=== PATIENT | male | born 1975 | race Caucasian/White ===

== ENCOUNTER 2016-07-05 15:19 | Emergency (ER) | payer BC, OTHER ==
[2016-07-05 15:35] VITALS: BP 147/95
--- NOTE | 2016-07-05 15:44 | UC ---
Hand/Wrist HPI - HPI Summary HPI Summary: The patient comes in today for: 1. Right thumb injury: Onset: 30 minutes ago. Palliative/provocative: Movement makes it worse. Rest makes it better. Quality: Ache Region: Right thumb, 4th and 5th finger and base of the thumb. Severity: 5/10 Time: Constant. Associated symptoms: Event: He was moving his tool box in the back of his truck and suffered a hyperextension injury. Previous treatment: None. Previous injury: None. * - History Of Current Complaint Chief Complaint: UCUpperExtremity Stated Complaint: RT HAND INJURY Time Seen by Provider: 07/05/16 15:37 Hx Obtained From: Patient - Allergies/Home Medications Allergies/Adverse Reactions: Allergies Allergy/AdvReac Type Severity Reaction Status Date / Time No Known Allergies Allergy Verified 07/05/16 15:35 PMH/Surg Hx/FS Hx/Imm Hx Previously Healthy: No - acute epididymitis Endocrine History Of: Denies: Diabetes, Thyroid Disease, Hyperthyroidism, Hypothyroidism, Dyslipidemia Cardiovascular History Of: Denies: Cardiac Disorders, Hypertension - He states that his blood pressure is usually lower., Pacemaker/ICD, Myocardial Infarction, Congestive Heart Failure, Atrial Fibrillation, Deep Vein Thrombosis, Bleeding Disorders Respiratory History Of: Denies: COPD, Asthma, Bronchitis, Pneumonia, Pulmonary Embolism GI/ History Of: Denies: Gastroesophageal Reflux, Ulcer, Gastrointestinal Bleed, Gall Bladder Disease, Kidney Stones, Diverticulitis, Renal Disease, Urosepsis Neurological History Of: Denies: TIA, CVA, Dementia, Seizures, Migraine Psychological History Of: Denies: Anxiety, Depression, Bipolar Disorder, Schizophrenia, Post Traumatic Stress Disorder Cancer History Of: Denies: Lung Cancer, Colorectal Cancer, Breast Cancer, Prostate Cancer, Cervical Cancer Other History Of: Negative For: HIV, Hepatitis B, Hepatitis C, Anticoagulant Therapy - Surgical History Surgical History: None - Family History Known Family History: Positive: Hypertension, Diabetes Negative: Cardiac Disease - Social History Occupation: Employed Full-time Alcohol Use: Occasionally Substance Use Type: None Smoking Status (MU): Light Every Day Tobacco Smoker Review of Systems Constitutional: Negative Skin: Negative Eyes: Negative ENT: Negative Respiratory: Negative Cardiovascular: Negative Gastrointestinal: Negative Genitourinary: Negative Musculoskeletal: Arthralgia, Myalgia All Other Systems Reviewed And Are Negative: Yes Physical Exam Triage Information Reviewed: Yes Appearance: Well-Appearing, No Pain Distress, Well-Nourished Vital Signs: Initial Vital Signs Temp 98.3 F 07/05/16 15:31 Pulse 79 07/05/16 15:31 Resp 12 07/05/16 15:31 BP 147/95 07/05/16 15:31 Pulse Ox 100 07/05/16 15:31 Vital Signs Reviewed: Yes Eyes: Positive: Conjunctiva Clear. Negative: Discharge ENT: Positive: Hearing grossly normal. Negative: Pharyngeal erythema, Nasal congestion, Nasal drainage, TM bulging, TM dull, TM red, Tonsillar swelling, Tonsillar exudate Dental: Negative: Gross Decay/Caries @, Dental Fracture @ Neck: Positive: Supple, Nontender, No Lymphadenopathy. Negative: Nuchal Rigidity Respiratory: Positive: Lungs clear, No respiratory distress, No accessory muscle use. Negative: Crackles, Wheezing Cardiovascular: Positive: RRR, No Murmur Abdomen Description: Positive: Nontender, No Organomegaly, Soft. Negative: Distended, Peritoneal Signs Musculoskeletal: Positive: Edema @, Other: - Right hand/thumb: No obvious misalignment. No ecchymosis. Mild edema. He is able to move the middle and distal phalanx. Neurological: Positive: Alert. Negative: Lethargic Psychological: Positive: Age Appropriate Behavior, Consolable Skin: Negative: rashes, breakdown Diagnostics - Radiology No standard instances Xray Interpretation: No Acute Changes Radiology Interpretation Completed By: Radiologist Hand/Wrist Course/Dx - Differential Dx/Diagnosis Differential Diagnosis/HQI/PQRI: Contusion, Sprain, Strain Provider Diagnoses: high blood pressure. Right thumb sprain. Discharge - Discharge Plan Condition: Stable Disposition: HOME Patient Education Materials: Finger Sprain (ED) Referrals: No Primary Care Phys,NOPCP [Primary Care Provider] - 1 Week (Please see your primary care provider in about three days to see how well you are doing. If you don't have a primary care provider, please contact the physician referral service. If you can't get in timely, please you may come back to see us until you can. If you get worse, please be seen sooner by us or the ER.) [facility] REFERRAL [Outside]
--- NOTE | 2016-07-05 16:14 | RAD ---
HISTORY: Pain after axial pressure injury, right hand and wrist pain COMPARISONS: None VIEWS: 8, Frontal, lateral, oblique, and scaphoid deviation views of the right hand and right wrist FINDINGS: BONE DENSITY: Normal. BONES: There is no displaced fracture. JOINTS: There is no arthropathy. ALIGNMENT: There is no dislocation. SOFT TISSUES: Unremarkable. OTHER FINDINGS: None. IMPRESSION: NO ACUTE OSSEOUS INJURY TO THE RIGHT HAND OR RIGHT WRIST. IF SYMPTOMS PERSIST, RECOMMEND REPEAT IMAGING.
== END 2016-07-05 16:35 | disposition home or self-care (01) ==
LOC: UCEAST 15:19
DX: S63.601A Unspecified sprain of right thumb, initial encounter (principal); X58.XXXA Exposure to other specified factors, initial encounter; Y93.89 Activity, other specified; Y92.812 Truck as the place of occurrence of the external cause; R03.0 Elevated blood-pressure reading, without diagnosis of hypertension; F17.210 Nicotine dependence, cigarettes, uncomplicated
CPT/HCPCS: 99213; G0463

== ENCOUNTER 2017-04-14 12:32 | Emergency (ER) | payer OTHER ==
[2017-04-14 13:19] VITALS: BP 138/92
--- NOTE | 2017-04-14 13:34 | UC ---
Eye Complaint HPI - HPI Summary HPI Summary: Right upper eye lid swelling and tenderness for about a day. No significant drainage. He denies eye trauma and photophobia. He uses contacts but will not be using them until this clears up. - History of Current Complaint Chief Complaint: KARINAEye Stated Complaint: EYE IRRITATION Time Seen by Provider: 04/14/17 13:20 Hx Obtained From: Patient Onset/Duration: Lasting Hours, Still Present Timing: Constant Severity Initially: Moderate Severity Currently: Moderate Character: Dull Aggravating Factor(s): Other - touch. Alleviating Factor(s): Nothing Associated Signs And Symptoms: Positive: Swelling. Negative: Photophobia, Vision Impairment Bilateral, Vision Impairment Right, Vision Impairment Left, Fever - Allergies/Home Medications Allergies/Adverse Reactions: Allergies Allergy/AdvReac Type Severity Reaction Status Date / Time No Known Allergies Allergy Verified 04/14/17 13:14 PMH/Surg Hx/FS Hx/Imm Hx Previously Healthy: Yes Other History Of: Negative For: HIV, Hepatitis B, Hepatitis C, Anticoagulant Therapy - Surgical History Surgical History: None - Family History Known Family History: Positive: Hypertension, Diabetes Negative: Cardiac Disease - Social History Occupation: Employed Full-time Lives: With Family Alcohol Use: 4-6 drinks daily Substance Use Type: None Smoking Status (MU): Light Every Day Tobacco Smoker Amount Used/How Often: 1 cigarette daily Length of Time of Smoking/Using Tobacco: ~1 PPD Since Age 17 - Immunization History Most Recent Influenza Vaccination: Not the 2016/2017 Season Review of Systems Eyes: Other - eye lid redness. All Other Systems Reviewed And Are Negative: Yes Physical Exam Triage Information Reviewed: Yes Appearance: Well-Appearing, No Pain Distress, Well-Nourished Vital Signs: Initial Vital Signs Temp 98.1 F 04/14/17 13:12 Pulse 76 04/14/17 13:12 Resp 16 04/14/17 13:12 BP 138/92 04/14/17 13:12 Pulse Ox 100 04/14/17 13:12 Vital Signs Reviewed: Yes Eye Exam: Other - right upper eye lid moderate swelling without fluctuance or pointing abcess. No pain with EOM. NO proptosis. No eye redness. Eyes: Positive: Conjunctiva Clear ENT: Positive: Pharynx normal, Nasal congestion. Negative: Nasal drainage Neck: Positive: Supple, Nontender, No Lymphadenopathy Respiratory: Positive: Lungs clear, Normal breath sounds, No respiratory distress, No accessory muscle use, Respiratory distress. Negative: Decreased breath sounds, Accessory muscle use, Crackles, Rhonchi, Stridor Cardiovascular: Positive: Brisk Capillary Refill Abdomen Description: Negative: Distended, Guarding Musculoskeletal: Positive: No Edema Neurological: Positive: Alert, Muscle Tone Normal. Negative: Fatigued Psychological: Positive: Age Appropriate Behavior Skin Exam: Other - upper eye lid redness. Eye Complaint Course/Dx - Course Course Of Treatment: No contacts until this clears up. Warm pack 4x/day. REturn for any worsening. - Differential Dx/Diagnosis Provider Diagnoses: stye Discharge - Discharge Plan Condition: Good Disposition: HOME Prescriptions: Sulfamethox/Trimethoprim DS* [Bactrim DS 800/160 TAB*] 1 tab PO BID #14 tab Patient Education Materials: Fanny (ED) Referrals: Micky Dunn DO [Primary Care Provider] -
== END 2017-04-14 13:35 | disposition home or self-care (01) ==
LOC: UCCORT 12:32
DX: H00.021 Hordeolum internum right upper eyelid (principal); Z72.89 Other problems related to lifestyle; Z72.0 Tobacco use
CPT/HCPCS: 99212; G0463

== ENCOUNTER 2017-07-25 16:05 | Emergency (ER) | payer OTHER ==
[2017-07-25 16:36] VITALS: BP 160/89
--- NOTE | 2017-07-25 16:49 | UC ---
Cardiac HPI - HPI Summary HPI Summary: Patient is a 41-year-old male presenting to the with chief complaint of her palpitation, chest discomfort which is nonradiating and dizziness. Denies any cardiac history. Denies any recent illness. Denies history of anxiety. He states the symptoms began on Saturday while at rest, he took a few days off and began to feel better, but all symptoms returned yesterday. Symptoms are not worse or better with positioning or exertion. He has not tried any medication for relief. He states the last 4 days he has also been dizzy, worse today then earlier in the week. Denies any shortness of breath. Endorses some diaphoresis. He has been otherwise healthy and takes no medications. History of mildly elevated blood pressure and cholesterol, for which she does not take medication. - History of Current Complaint Chief Complaint: UCDizziness Stated Complaint: DIZZINESS CHEST COMPLAINT Time Seen by Provider: 07/25/17 16:17 Hx Obtained From: Patient Onset/Duration: Sudden Onset Timing: Constant Initial Severity: Mild Current Severity: Mild Pain Intensity: 0 Chest Pain Location: Mid Sternal, Left Anterior Character: Irregular, Fluttering, Pressure/Squeezing Aggravating Factor(s): Nothing Alleviating Factor(s): Rest, Position Associated Signs & Symptoms: Positive: Chest Pain - Risk Factors Pulmonary Embolism Risk Factors: Smoking Cardiac Risk Factors: Hypertension, Smoking, Elevated Lipids Atrial Fibrillation: Hypertension TAD Risk Factors: Smoking, Hypertension AMI/ACS Risk Factors: Hypertension, Smoking - Allergy/Home Medications Allergies/Adverse Reactions: Allergies Allergy/AdvReac Type Severity Reaction Status Date / Time No Known Allergies Allergy Verified 07/25/17 16:36 Home Medications: Home Medications NK [No Home Medications Reported] 07/25/17 [History Confirmed 07/25/17] PMH/Surg Hx/FS Hx/Imm Hx Previously Healthy: Yes Other History Of: Negative For: HIV, Hepatitis B, Hepatitis C, Anticoagulant Therapy - Surgical History Surgical History: None - Family History Known Family History: Positive: Hypertension, Diabetes Negative: Cardiac Disease - Social History Occupation: Employed Full-time Lives: With Family Alcohol Use: Daily Alcohol Amount: 6 per day Substance Use Type: None Smoking Status (MU): Heavy Every Day Tobacco Smoker Amount Used/How Often: 1 cigarette daily Length of Time of Smoking/Using Tobacco: ~1 PPD Since Age 17 - Immunization History Most Recent Influenza Vaccination: Not the Season Review of Systems Constitutional: Negative Skin: Negative Respiratory: Shortness Of Breath Cardiovascular: Palpitations, Chest Pain Gastrointestinal: Abdominal Pain - epigastric Motor: Negative Neurovascular: Negative Neurological: Negative Psychological: Negative Is Patient Immunocompromised?: No All Other Systems Reviewed And Are Negative: Yes Physical Exam Triage Information Reviewed: Yes Appearance: Well-Appearing, Well-Nourished Vital Signs: Initial Vital Signs Temp 98.1 F 07/25/17 16:29 Pulse 83 07/25/17 16:29 Resp 18 07/25/17 16:29 BP 160/89 07/25/17 16:29 Pulse Ox 99 07/25/17 16:29 Vital Signs Reviewed: Yes Eye Exam: Normal Eyes: Positive: Conjunctiva Clear Neck exam: Normal Neck: Positive: Supple, Nontender Respiratory Exam: Normal Respiratory: Positive: Chest non-tender, Lungs clear Cardiovascular Exam: Normal Cardiovascular: Positive: RRR Bowel Sounds: Positive: Present Neurological Exam: Normal Neurological: Positive: Alert Psychological: Positive: Normal Response To Family Skin Exam: Normal - Assessment/Plan Course Of Treatment: During the course of treatment, the patient's evaluated for chest discomfort that he describes as an aching which is to the left anterior chest wall, associated dizziness and pain to his abdomen most notably to the epigastric region. He has not taken any medication for relief. On arrival, he is immediately brought back to a room and an EKG performed. The EKG is read by Dr. Ferreira as sinus rhythm, RSR. Rate of 80. He appears to be in no acute distress. He states he is currently dizzy, but denies any syncopal episodes. Discussed with patient and spouse the limitations of the urgent care and I have recommended he go directly to the emergency room. He is okay with this plan at discharge. Called the ED at 4:30 PM and spoke with Venkat aGn PA-C. Patient is traveling by private car. - Differential Diagnoses - Chest Pain Differential Diagnosis/HQI/PQRI: ACS, Chest Wall - Clinical Impression Provider Diagnoses: Chest Pain Discharge - Sign-Out/Discharge Documenting (check all that apply): Discharge - Discharge Plan Condition: Stable Disposition: HOME Patient Education Materials: Chest Pain (ED) Referrals: Micky Dunn DO [Primary Care Provider] - Additional Instructions: Please go directly to the ED - Billing Disposition and Condition Condition: STABLE Disposition: HOME
== END 2017-07-25 16:30 | disposition home or self-care (01) ==
LOC: UCEAST 16:05
DX: R07.89 Other chest pain (principal); R10.13 Epigastric pain; R06.02 Shortness of breath; F17.210 Nicotine dependence, cigarettes, uncomplicated
CPT/HCPCS: 93005; 99212; G0463

== ENCOUNTER 2017-07-25 16:57 | Emergency (ER) | payer OTHER ==
[2017-07-25] MEDS ORDERED: NS 0.9% 1000 ML* 1,000 ML IV ONE (17:46)
[2017-07-25] MEDS ORDERED: Sucralfate TAB* 1 GM PO ONE (18:12)
--- NOTE | 2017-07-25 18:13 | RAD ---
INDICATION: Chest pain and palpitations. COMPARISON: Comparison is made with a prior study from January 31, 2012. TECHNIQUE: A portable view of the chest was obtained. FINDINGS: Cardiac and mediastinal contours appear to be within normal limits. The lungs are clear. No pleural effusion is seen. IMPRESSION: NO EVIDENCE FOR ACUTE DISEASE.
[2017-07-25 18:48] LABS: ABS Basophils 0 10^3/ul (0-0.2); ABS Eosinophils 0.3 10^3/ul (0-0.6); ABS Lymphocytes 2.3 10^3/ul (1.0-4.8); ABS Monocytes 0.8 10^3/ul (0-0.8); ABS Neutrophils 3.6 10^3/ul (1.5-7.7); ABS Nucleated RBC 0 10^3/ul; Eosinophil % 3.7 % (0-6); Hematocrit 41 % (42-52); Hemoglobin 14.1 g/dl (14.0-18.0); Lymphocyte % 33.2 % (25-47); Mean Corpuscular HGB Conc 34 g/dl (31-36); Mean Corpuscular Hemoglobin 33 pg (27-31); Mean Corpuscular Volume 95 fL (80-94); Mean Platelet Volume 7.9 um3 (7.4-10.4); Nucleated Red Blood Cells % 0.1; Platelet Count 209 10^3/ul (150-450); Red Blood Count 4.34 10^6/ul (4.0-5.4); Red Cell Distribution Width 13 % (10.5-15); White Blood Count 7.1 10^3/ul (3.5-10.8)
[2017-07-25 18:57] LABS: INR 1.01 (0.77-1.02)
[2017-07-25 19:06] LABS: EGFR Non-African American 89.3 (>60)
[2017-07-25 21:11] VITALS: BP 137/92
--- NOTE | 2017-07-25 21:31 | ED ---
Pamela Ba Gabriel, scribed for Gagandeep Emerson MD on 07/25/17 at 1812 . HPI Chest Pain - HPI Summary HPI Summary: This patient is a 41 year old M presenting to [facility] accompanied by his with a chief complaint of waxing and waning CP since 07-21-17. The patient rates the pain 3/10 in severity. Symptoms aggravated by sitting up. Symptoms alleviated by standing or lying. Patient reports intermittent dizziness, palpitations, and fatigue. Pt smokes daily. - History of Current Complaint Chief Complaint: EDChestPainROMI Time Seen by Provider: 07/25/17 18:03 Hx Obtained From: Patient Onset/Duration: Started Days Ago, Still Present Timing: Constant - waxing and waning Initial Severity: Mild Current Severity: Mild Pain Intensity: 3 Pain Scale Used: 0-10 Numeric Chest Pain Location: Mid Sternal Chest Pain Radiates: Yes Chest Pain Radiates To:: Arm - left arm Aggravating Factor(s): Other: - sitting upright Alleviating Factor(s): Other: - standing and lying Associated Signs and Symptoms: Positive: Other: - intermittent dizziness, palpitations, fatigue, - Allergy/Home Medications Allergies/Adverse Reactions: Allergies Allergy/AdvReac Type Severity Reaction Status Date / Time No Known Allergies Allergy Verified 07/25/17 16:36 PMH/Surg Hx/FS Hx/Imm Hx Endocrine/Hematology History: Denies: Hx Anticoagulant Therapy, Hx Diabetes, Hx Thyroid Disease Cardiovascular History: Denies: Hx Cardiomegaly, Hx Congestive Heart Failure, Hx Deep Vein Thrombosis , Hx Hypertension, Hx Myocardial Infarction, Hx Pacemaker/ICD Respiratory History: Denies: Hx Asthma, Hx Chronic Obstructive Pulmonary Disease (COPD), Hx Lung Cancer, Hx Pneumonia, Hx Pulmonary Embolism GI History: Denies: Hx Gall Bladder Disease, Hx Gastrointestinal Bleed, Hx Ulcer, Hx Urosepsis History: Denies: Hx Kidney Stones, Hx Renal Disease Neurological History: Denies: Hx Dementia, Hx Migraine, Hx Seizures, Hx Transient Ischemic Attacks (TIA) Psychiatric History: Denies: Hx Anxiety, Hx Depression, Hx Schizophrenia, Hx Bipolar Disorder Infectious Disease History: No Infectious Disease History: Denies: Hx Hepatitis, Hx Human Immunodeficiency Virus (HIV), Traveled Outside the [place] in Last 30 Days - Family History Known Family History: Positive: Hypertension, Diabetes Negative: Cardiac Disease - Social History Lives: With Family Alcohol Use: Daily Alcohol Amount: 6 per day Substance Use Type: Reports: None Smoking Status (MU): Heavy Every Day Tobacco Smoker Amount Used/How Often: 1 cigarette daily Length of Time of Smoking/Using Tobacco: ~1 PPD Since Age 17 Review of Systems Positive: Fatigue Positive: Palpitations, Chest Pain Neurological: Other - dizziness All Other Systems Reviewed And Are Negative: Yes Physical Exam - Summary Physical Exam Summary: Appearance: The patient is well-nourished in no acute distress and in no acute pain. Skin: The skin is warm and dry and skin color reflects adequate perfusion. HEENT: The head is normocephalic and atraumatic. The pupils are equal and reactive. The conjunctivae are clear and without drainage. Nares are patent and without drainage. Mouth reveals moist mucous membranes and the throat is without erythema and exudate. The external ears are intact. The ear canals are patent and without drainage. The tympanic membranes are intact. Neck: the neck is supple with full range of motion and non-tender. There are no carotid bruits. There is no neck vein distension. Respiratory: Chest is mildly tender in the xiphoid process Lungs are clear to auscultation and breath sounds are symmetrical and equal. Cardiovascular: Heart is regular rate and rhythm. There is no murmur or rub auscultated. There is no peripheral edema and pulses are symmetrical and equal. Abdomen: The abdomen is soft and non-tender. There are normal bowel sounds heard in all four quadrants and there is no organomegaly palpated. Musculoskeletal: There is no back tenderness noted. Extremities are non-tender with full range of motion. There is good capillary refill. There is no peripheral edema or calf tenderness elicited. Neurological: Patient is alert and oriented to person, place and time. The patient has symmetrical motor strength in all four extremities. Cranial nerves are grossly intact. Deep tendon reflexes are symmetrical and equal in all four extremities. Psychiatric: The patient has an appropriate affect and does not exhibit any anxiety or depression. Triage Information Reviewed: Yes Vital Signs On Initial Exam: Initial Vitals Temp Pulse Resp BP Pulse Ox 97.6 F 71 18 152/98 100 07/25/17 16:59 07/25/17 16:59 07/25/17 16:59 07/25/17 16:59 07/25/17 16:59 Vital Signs Reviewed: Yes Diagnostics - Vital Signs Vital Signs Temp Pulse Resp BP Pulse Ox 07/25/17 16:59 97.6 F 71 18 152/98 100 - Laboratory Lab Results: Lab Results 07/25/17 07/25/17 07/25/17 Range/Units 18:36 18:36 18:36 WBC 7.1 (3.5-10.8) 10^3/ul RBC 4.34 (4.0-5.4) 10^6/ul Hgb 14.1 (14.0-18.0) g/dl Hct 41 L (42-52) % MCV 95 H (80-94) fL MCH 33 H (27-31) pg MCHC 34 (31-36) g/dl RDW 13 (10.5-15) % Plt Count 209 (150-450) 10^3/ul MPV 7.9 (7.4-10.4) um3 Neut % (Auto) 51.3 (38-83) % Lymph % (Auto) 33.2 (25-47) % [place] % (Auto) 11.2 H (0-7) % Eos % (Auto) 3.7 (0-6) % Baso % (Auto) 0.6 (0-2) % Absolute Neuts (auto) 3.6 (1.5-7.7) 10^3/ul Absolute Lymphs (auto) 2.3 (1.0-4.8) 10^3/ul Absolute Monos (auto) 0.8 (0-0.8) 10^3/ul Absolute Eos (auto) 0.3 (0-0.6) 10^3/ul Absolute Basos (auto) 0 (0-0.2) 10^3/ul Absolute Nucleated RBC 0 10^3/ul Nucleated RBC % 0.1 INR (Anticoag Therapy) 1.01 (0.77-1.02) APTT 34.4 (26.0-36.3) seconds D-Dimer, Quantitative < 200 (Less Than 230) ng/mL Sodium 141 (139-145) mmol/L Potassium 4.0 (3.5-5.0) mmol/L Chloride 105 (101-111) mmol/L Carbon Dioxide 30 (22-32) mmol/L Anion Gap 6 (2-11) mmol/L BUN 12 (6-24) mg/dL Creatinine 0.94 (0.67-1.17) mg/dL Est GFR ( Amer) 114.9 (>60) Est GFR (Non-Af Amer) 89.3 (>60) BUN/Creatinine Ratio 12.8 (8-20) Glucose 67 L (70-100) mg/dL Lactic Acid (0.5-2.0) mmol/L Calcium 9.2 (8.6-10.3) mg/dL Magnesium 2.1 (1.9-2.7) mg/dL Total Bilirubin 0.70 (0.2-1.0) mg/dL AST 24 (13-39) U/L ALT 29 (7-52) U/L Alkaline Phosphatase 37 (34-104) U/L Total Creatine Kinase 133 (10-223) U/L CK-MB (CK-2) 2.9 (0.6-6.3) ng/mL Troponin I 0.00 (<0.04) ng/mL C-Reactive Protein 1.00 (< 5.00) mg/L Total Protein 7.0 (6.4-8.9) g/dL Albumin 4.3 (3.2-5.2) g/dL Globulin 2.7 (2-4) g/dL Albumin/Globulin Ratio 1.6 (1-3) Lipase 13 (11.0-82.0) U/L TSH 1.96 (0.34-5.60) mcIU/mL 07/25/17 Range/Units 18:36 WBC (3.5-10.8) 10^3/ul RBC (4.0-5.4) 10^6/ul Hgb (14.0-18.0) g/dl Hct (42-52) % MCV (80-94) fL MCH (27-31) pg MCHC (31-36) g/dl RDW (10.5-15) % Plt Count (150-450) 10^3/ul MPV (7.4-10.4) um3 Neut % (Auto) (38-83) % Lymph % (Auto) (25-47) % [place] % (Auto) (0-7) % Eos % (Auto) (0-6) % Baso % (Auto) (0-2) % Absolute Neuts (auto) (1.5-7.7) 10^3/ul Absolute Lymphs (auto) (1.0-4.8) 10^3/ul Absolute Monos (auto) (0-0.8) 10^3/ul Absolute Eos (auto) (0-0.6) 10^3/ul Absolute Basos (auto) (0-0.2) 10^3/ul Absolute Nucleated RBC 10^3/ul Nucleated RBC % INR (Anticoag Therapy) (0.77-1.02) APTT (26.0-36.3) seconds D-Dimer, Quantitative (Less Than 230) ng/mL Sodium (139-145) mmol/L Potassium (3.5-5.0) mmol/L Chloride (101-111) mmol/L Carbon Dioxide (22-32) mmol/L Anion Gap (2-11) mmol/L BUN (6-24) mg/dL Creatinine (0.67-1.17) mg/dL Est GFR ( Amer) (>60) Est GFR (Non-Af Amer) (>60) BUN/Creatinine Ratio (8-20) Glucose (70-100) mg/dL Lactic Acid 0.8 (0.5-2.0) mmol/L Calcium (8.6-10.3) mg/dL Magnesium (1.9-2.7) mg/dL Total Bilirubin (0.2-1.0) mg/dL AST (13-39) U/L ALT (7-52) U/L Alkaline Phosphatase (34-104) U/L Total Creatine Kinase (10-223) U/L CK-MB (CK-2) (0.6-6.3) ng/mL Troponin I (<0.04) ng/mL C-Reactive Protein (< 5.00) mg/L Total Protein (6.4-8.9) g/dL Albumin (3.2-5.2) g/dL Globulin (2-4) g/dL Albumin/Globulin Ratio (1-3) Lipase (11.0-82.0) U/L TSH (0.34-5.60) mcIU/mL Result Diagrams: 07/25/17 18:36 07/25/17 18:36 Lab Statement: Any lab studies that have been ordered have been reviewed, and results considered in the medical decision making process. - Radiology CXR Radiology Interpretation Completed By: Radiologist - no evidence for acute disease ED physician has reviewed this radiology report. - EKG 17:01 Cardiac Rate: NL EKG Rhythm: Sinus Rhythm - at 73 BPM Ectopy: None Chest Pain Course/Dx - Course Course Of Treatment: Mr. Mendoza presented with several days of chest discomfort. His exam and W/U were nonspecific and I suggested we try a few days of carafate to see if that will calm things down and he will F/U. - Diagnoses Provider Diagnoses: Chest pain Discharge - Sign-Out/Discharge Documenting (check all that apply): Discharge - Discharge Plan Condition: Stable Disposition: HOME Prescriptions: Sucralfate TAB* [Carafate*] 1 gm PO QID #20 tab Patient Education Materials: Chest Pain (ED) Referrals: Micky Dunn DO [Primary Care Provider] - 2 Days Additional Instructions: RETURN TO THE EMERGENCY DEPARTMENT FOR CHANGING OR WORSENING SYMPTOMS - Billing Disposition and Condition Condition: STABLE Disposition: HOME The documentation as recorded by the Pamela jones Gabriel accurately reflects the service I personally performed and the decisions made by me, Gagandeep Emerson MD.
== END 2017-07-25 21:10 | disposition home or self-care (01) ==
LOC: ED 16:57
DX: R07.9 Chest pain, unspecified (principal); R42 Dizziness and giddiness; R00.2 Palpitations; R53.83 Other fatigue; F17.210 Nicotine dependence, cigarettes, uncomplicated
CPT/HCPCS: 36415; 71045; 80053; 82550; 82553; 83605; 83690; 83735; 84443; 84484; 85025; 85379; 85610; 85730; 86140; 93005; 99282; A9270-GY

== ENCOUNTER 2019-01-12 14:38 | Emergency (ER) | payer OTHER ==
[2019-01-12 14:54] VITALS: BP 134/101
--- NOTE | 2019-01-12 15:01 | UC ---
Cardiac HPI - HPI Summary HPI Summary: The patient is a 43-year-old male that had the acute onset of substernal chest pain radiating to his neck and jaw, as well as his back. The pain initially was 8 or 9 out of 10. This severe pain lasted only 2-3 minutes and its onset was about 30 minutes prior to arrival. On arrival he has mild 1 or 2 out of 10 pain between his shoulder blades. He experienced no diaphoresis or shortness of breath. He experienced no nausea or vomiting. He denies any abdominal pain. With the severe pain he felt a little dizzy. This has subsided. He states that he is a smoker and has high cholesterol which she attempts to manage by diet. He said his blood pressure was checked at work about a month ago and was normal however today it is elevated. He states that he has chronic intermittent back pain for which she takes ibuprofen. His last dose of ibuprofen was yesterday. For the past few weeks she has had intermittent right lower chest pain which has been sharp and lasts minutes. He has had no URI symptoms. - History of Current Complaint Chief Complaint: UCChestPain Stated Complaint: CHEST, AND RIB PAIN Time Seen by Provider: 01/12/19 14:52 Hx Obtained From: Patient Onset/Duration: Sudden Onset, Lasting Minutes Timing: Constant Initial Severity: Severe Current Severity: Mild Pain Intensity: 2 Chest Pain Location: Mid Sternal - with radiation to neck/jaw and between shoulder blades Character: Tightness, Burning, Pressure/Squeezing Aggravating Factor(s): Nothing Alleviating Factor(s): Spontaneous Resolution Associated Signs & Symptoms: Positive: Chest Pain, Dizziness, Back Pain. Negative: Vision Changes, Anxiety, Recent Stress, Headaches, Numbness, Tingling , Weakness, SOB, Swelling, Syncope, Fever, Diaphoresis, Nausea/Vomiting, Palpitations, Cough, Hemoptysis, Abdominal Pain, Calf Pain/Swelling - Allergy/Home Medications Allergies/Adverse Reactions: Allergies Allergy/AdvReac Type Severity Reaction Status Date / Time No Known Allergies Allergy Verified 01/12/19 14:54 Home Medications: Home Medications Ibuprofen TAB* [Advil TAB*] 200 mg PO Q6H PRN 01/12/19 [History Confirmed ] PMH/Surg Hx/FS Hx/Imm Hx Previously Healthy: Yes Endocrine History: Dyslipidemia Other History Of: Negative For: HIV, Hepatitis B, Hepatitis C, Anticoagulant Therapy - Surgical History Surgical History: None - Family History Known Family History: Positive: Hypertension, Diabetes Negative: Cardiac Disease - Social History Alcohol Use: Daily Alcohol Amount: 6 beer per day Substance Use Type: None Smoking Status (MU): Heavy Every Day Tobacco Smoker Type: Cigarettes Amount Used/How Often: 1/2-1 PPD Length of Time of Smoking/Using Tobacco: ~1 PPD Since Age 17 Cessation Counseling: Patient Advised to Stop - Immunization History Most Recent Influenza Vaccination: Not the Review of Systems All Other Systems Reviewed And Are Negative: Yes Constitutional: Positive: Negative Skin: Positive: Negative Eyes: Positive: Negative ENT: Positive: Negative Respiratory: Positive: Negative Cardiovascular: Positive: Chest Pain Gastrointestinal: Positive: Negative Genitourinary: Positive: Negative Motor: Positive: Negative Neurovascular: Positive: Negative Musculoskeletal: Positive: Negative Neurological: Positive: Negative Psychological: Positive: Negative Physical Exam Triage Information Reviewed: Yes Appearance: Well-Appearing, No Pain Distress, Well-Nourished Vital Signs: Initial Vital Signs Temp 98.4 F 01/12/19 14:50 Pulse 75 01/12/19 14:50 Resp 16 01/12/19 14:50 BP 134/101 01/12/19 14:50 Pulse Ox 100 01/12/19 14:50 Vital Signs Reviewed: Yes Eyes: Positive: Conjunctiva Clear ENT: Positive: Hearing grossly normal, Pharynx normal, TMs normal, Uvula midline. Negative: Nasal congestion, Nasal drainage, TM red, Tonsillar swelling , Tonsillar exudate, Trismus, Muffled voice, Hoarse voice, Dental tenderness, Sinus tenderness Neck exam: Normal Neck: Positive: Supple, Nontender, No Lymphadenopathy Respiratory: Positive: Lungs clear, Normal breath sounds, No respiratory distress, No accessory muscle use Cardiovascular: Positive: RRR, No Murmur Abdomen Description: Positive: Soft. Negative: Nontender - slight RUQ tenderness Bowel Sounds: Positive: Present Musculoskeletal: Positive: ROM Intact, No Edema Neurological: Positive: Alert Psychological Exam: Normal Skin Exam: Normal Diagnostics - EKG Cardiac Rate: NL Cardiac Rhythm: Sinus: Normal Ectopy: None ST Segment: Normal EKG Comparison: No Significant Change - from 07/25/17 - Assessment/Plan Course Of Treatment: given 4 baby asa here declined EMS transfer will go to ER via POV - Clinical Impression Provider Diagnosis: Chest pain of uncertain etiology, Elevated BP without diagnosis of hypertension , Smoker Discharge ED - Sign-Out/Discharge Documenting (check all that apply): Patient Departure All imaging exams completed and their final reports reviewed: No Studies - Discharge Plan Condition: Stable Disposition: TRANS HIGHER LVL OF CARE FAC Referrals: Micky Dunn DO [Primary Care Provider] - 2 Weeks (BP RECHECK IN 2-12 weeks) Additional Instructions: Despite having a normal EKG I suggest you go to the ER for further evaluation You do have cardiac risk factors Your BP was a little high here You need to give up smoking you had 4 baby aspirin here - Billing Disposition and Condition Condition: STABLE Disposition: Trans Higher Lvl of Care Fac
[2019-01-12] MEDS ORDERED: Aspirin 81 mg CHEW TAB* 81 MG TAB.CHEW PO ONE (15:13)
[2019-01-13] MEDS ORDERED: Aspirin 81 mg CHEW TAB* 81 MG TAB.CHEW PO ONE (15:07)
== END 2019-01-12 15:18 | disposition short-term general hospital (02) ==
LOC: UCEAST 14:38
DX: R07.89 Other chest pain (principal); R03.0 Elevated blood-pressure reading, without diagnosis of hypertension; M54.2 Cervicalgia; R68.84 Jaw pain; F17.210 Nicotine dependence, cigarettes, uncomplicated
CPT/HCPCS: 93005; 99212; A9270-GY; G0463

== ENCOUNTER 2019-01-12 15:36 | Emergency (ER) | payer OTHER ==
--- NOTE | 2019-01-12 16:18 | ED ---
HPI Chest Pain - HPI Summary HPI Summary: The patient is a 43 y/o M presenting to [facility] with a chief complaint of sudden onset chest pain occurring at 1400 and lasting for approximately 15 minutes before dissipating. He reports that he was at rest at work when he had a sudden onset mid-sternal pain radiating through to the back and into the neck, jaw, and down between his shoulders. He had lightheadedness and some difficulty breathing secondary to the pain, but he denies any palpitations, nausea, or diaphoresis. The pain began as sharp, but is now just a discomfort. Currently, his symptoms are rated 2/10 in severity. He had gone to Urgent Care prior to being advised to come here, but he was administered 324mg ASA there. He has not experienced these symptoms before. PMHx: chronic back pain. FHx: ME grandfather age late 40s, DM. Current every day smoker, daily EtOH, no substance use. Medications reviewed. Allergies noted. - History of Current Complaint Chief Complaint: EDChestPainROMI Time Seen by Provider: 01/12/19 16:04 Hx Obtained From: Patient Onset/Duration: Started Hours Ago - 1400, Still Present Time of Onset: 14:00 Timing: Lasting Minutes - 15 minutes Initial Severity: Moderate Current Severity: Mild Pain Intensity: 2 Pain Scale Used: 0-10 Numeric Chest Pain Location: Mid Sternal Chest Pain Radiates: Yes Chest Pain Radiates To:: Back, Shoulder - between shoulders, Jaw, Neck Character: Sharp/Stabbing, Other: - discomfort Aggravating Factor(s): Nothing Alleviating Factor(s): Nothing, Spontaneous Resolution Associated Signs and Symptoms: Positive: Chest Pain, Shortness of Breath - secondary to pain, Lightheadedness, Back Pain. Negative: Diaphoresis, Nausea, Palpitations - Allergy/Home Medications Allergies/Adverse Reactions: Allergies Allergy/AdvReac Type Severity Reaction Status Date / Time No Known Allergies Allergy Verified 01/12/19 14:54 Home Medications: Home Medications Multivitamins/Minerals TAB* [Theragran/minerals TAB*] 1 tab PO DAILY 01/12/19 [ History Confirmed 01/12/19] PMH/Surg Hx/FS Hx/Imm Hx Endocrine/Hematology History: Denies: Hx Anticoagulant Therapy, Hx Diabetes, Hx Thyroid Disease Cardiovascular History: Denies: Hx Cardiomegaly, Hx Congestive Heart Failure, Hx Deep Vein Thrombosis , Hx Hypertension, Hx Myocardial Infarction, Hx Pacemaker/ICD Respiratory History: Denies: Hx Asthma, Hx Chronic Obstructive Pulmonary Disease (COPD), Hx Lung Cancer, Hx Pneumonia, Hx Pulmonary Embolism GI History: Denies: Hx Gall Bladder Disease, Hx Gastrointestinal Bleed, Hx Ulcer, Hx Urosepsis History: Denies: Hx Kidney Stones, Hx Renal Disease Neurological History: Denies: Hx Dementia, Hx Migraine, Hx Seizures, Hx Transient Ischemic Attacks (TIA) Psychiatric History: Denies: Hx Anxiety, Hx Depression, Hx Schizophrenia, Hx Bipolar Disorder - Surgical History Surgical History: None Surgery Procedure, Year, and Place: none Infectious Disease History: No Infectious Disease History: Denies: Hx Hepatitis, Hx Human Immunodeficiency Virus (HIV), Traveled Outside the [place] in Last 30 Days - Family History Known Family History: Positive: Hypertension, Diabetes Negative: Cardiac Disease - Social History Alcohol Use: Daily Alcohol Amount: 6 beer per day Hx Substance Use: No Substance Use Type: Reports: None Hx Tobacco Use: Yes Smoking Status (MU): Heavy Every Day Tobacco Smoker Type: Cigarettes Amount Used/How Often: 1/2-1 PPD Length of Time of Smoking/Using Tobacco: ~1 PPD Since Age 17 Review of Systems Negative: Skin Diaphoresis Positive: Chest Pain - mid-sternal radiating into back between shoulders, neck, and jaw. Negative: Palpitations Positive: Other - difficulty breathing secondary to pain Positive: Nausea Neurological: Other - lightheaded All Other Systems Reviewed And Are Negative: Yes Physical Exam - Summary Physical Exam Summary: VITAL SIGNS: Reviewed. GENERAL: Patient is a well-developed and nourished male who is lying comfortable in the stretcher. Patient is not in any acute respiratory distress. HEAD AND FACE: No signs of trauma. No ecchymosis, hematomas or skull depressions. No sinus tenderness. EYES: PERRLA, EOMI x 2, No injected conjunctiva, no nystagmus. EARS: Hearing grossly intact. Ear canals and tympanic membranes are within normal limits. MOUTH: Oropharynx within normal limits. NECK: Supple, trachea is midline, no adenopathy, no JVD, no carotid bruit, no c- spine tenderness, neck with full ROM. CHEST: Symmetric, no tenderness at palpation. LUNGS: Clear to auscultation bilaterally. No wheezing or crackles. CVS: Regular rate and rhythm, S1 and S2 present, no murmurs or gallops appreciated. ABDOMEN: Soft, non-tender. No signs of distention. No rebound, no guarding, and no masses palpated. Bowel sounds are normal. EXTREMITIES: FROM in all major joints, no edema, no cyanosis or clubbing. NEURO: Alert and oriented x 3. No acute neurological deficits. Speech is normal and follows commands. SKIN: Dry and warm. Triage Information Reviewed: Yes Vital Signs On Initial Exam: Initial Vitals Temp Pulse Resp BP Pulse Ox 98.4 F 88 20 154/95 100 01/12/19 15:39 01/12/19 15:39 01/12/19 15:39 01/12/19 15:39 01/12/19 15:39 Vital Signs Reviewed: Yes Procedures - Sedation Patient Received Moderate/Deep Sedation with Procedure: No Diagnostics - Vital Signs Vital Signs Temp Pulse Resp BP Pulse Ox 01/12/19 15:39 98.4 F 88 20 154/95 100 - Laboratory Result Diagrams: 01/12/19 16:30 01/12/19 16:30 Lab Statement: Any lab studies that have been ordered have been reviewed, and results considered in the medical decision making process. - Radiology Chest X-Ray Radiology Interpretation Completed By: Radiologist Summary of Radiographic Findings: Impression: No acute cardiopulmonary process by radiograph. ED physician has reviewed this report. - EKG 1539 Cardiac Rate: NL - 76 bpm EKG Rhythm: Sinus Rhythm EKG Comparison: No Significant Change - Similar to previous taken on 07/25/17. Summary of EKG Findings: EKG at 1539 reveals NSR at [address] elevations. No ST depressions. Normal axis. 1722 Cardiac Rate: NL - 69 bpm EKG Rhythm: Sinus Rhythm Summary of EKG Findings: EKG at 1722 reveals NSR at 69 bpm. Normal axis. No ST elevations. Re-Evaluation - Re-Evaluation First Eval Re-Evaluation Time: 19:45 Change: Improved Comment: His symptoms are feeling better. We discussed all results and plan for discharge. Chest Pain Course/Dx - Course Assessment/Plan: Patient is a 43 y/o M with chief complaint of sudden onset sharp mid-sternal pain radiating through to the back and into the neck, jaw, and down between the shoulders that lasted for 15 minutes accompanied by difficulty breathing secondary to pain and lightheadedness but no palpitations, nausea, or diaphoresis. Family history of ME in grandfather late 40s. Blood test results without a significant abnormality. Two troponins 4 hours apart as 0.00. EKG shows no ST elevations. Chest x-ray impression: No acute cardiopulmonary process. In the ED course, the patient was given Toradol and the symptoms have improved. Heart score is equal to 1. Patient reports that all symptoms have resolved. Because the patient has no significant comorbidities and no family history of cardiovascular disease at his age the patient will be discharged home with follow up of PMD. I discussed all the findings and test results with the patient. Patient was instructed to return to the emergency room immediately if any of the symptoms return or worsen. Patient understands and agrees. Plan of care was discussed with the patient and patient understands and agrees. All questions were answered at patient satisfaction. There were no further complaints or concerns. PE before discharge: CVS: S1 and S2 present. No murmurs appreciated. Abdominal exam before discharge: Soft, non-tender. No signs of distention. No rebound, no guarding, and no masses palpated. Bowel sounds are normal. Patient is alert and oriented x 3. Patient is hemodynamically stable. - Diagnoses Provider Diagnoses: Atypical chest pain Discharge ED - Sign-Out/Discharge Documenting (check all that apply): Patient Departure - Patient will be discharged home. - Discharge Plan Condition: Improved Disposition: HOME Patient Education Materials: Chest Pain (DC) Referrals: Micky Dunn DO [Primary Care Provider] - 3 Days Additional Instructions: Follow up with your primary care provider in 2-3 days. Return to the emergency department for any new or worsening symptoms. - Billing Disposition and Condition Condition: IMPROVED Disposition: Home - Attestation Statements Document Initiated by Trudi: Yes Documenting Scribe: Korin Montelongo Provider For Whom Trudi is Documenting (Include Credential): Dr. Evangelist Browning MD Scribe Attestation: Korin Ba scribed for Dr. Evangelist Browning MD on 01/13/19 at 1849. Scribe Documentation Reviewed: Yes Provider Attestation: The documentation as recorded by the Korin jones accurately reflects the service I personally performed and the decisions made by me, Dr. Evangelist Browning MD Status of Scribe Document: Viewed
[2019-01-12 16:47] LABS: ABS Basophils 0.1 10^3/ul (0-0.2); ABS Eosinophils 0.3 10^3/ul (0-0.6); ABS Lymphocytes 1.9 10^3/ul (1.0-4.8); ABS Monocytes 0.7 10^3/ul (0-0.8); ABS Neutrophils 4.2 10^3/ul (1.5-7.7); Eosinophil % 4.8 %; Hematocrit 42 % (42-52); Hemoglobin 14.8 g/dL (14.0-18.0); Lymphocyte % 26.8 %; Mean Corpuscular HGB Conc 35 g/dL (31-36); Mean Corpuscular Hemoglobin 34 pg (27-31); Mean Corpuscular Volume 95 fL (80-94); Mean Platelet Volume 7.9 fL (7.4-10.4); Platelet Count 213 10^3/uL (150-450); Red Cell Distribution Width 14 % (10-15); White Blood Count 7.2 10^3/uL (3.5-10.8)
[2019-01-12 17:00] LABS: Albumin 4.6 g/dL (3.2-5.2); Albumin/Globulin Ratio 1.8 (1-3); BUN/Creatinine Ratio 16.5 (8-20); Calcium 9.4 mg/dL (8.6-10.3); EGFR African American 96.3 (>60); EGFR Non-African American 79.6 (>60); Globulin 2.5 g/dL (2-4); Potassium 3.9 mmol/L (3.5-5.0); Total Bilirubin 0.8 mg/dL (0.2-1.0); Total Protein 7.1 g/dL (6.4-8.9)
[2019-01-12 17:07] LABS: INR 1.07 (0.82-1.09)
[2019-01-12 17:35] LABS: TSH (Thyroid Stimulating Horm) 1.27 mcIU/mL (0.34-5.60)
[2019-01-12 18:39] LABS: Magnesium 1.9 mg/dL (1.9-2.7)
[2019-01-12] MEDS ORDERED: Ketorolac INJ* 30 MG/ML 1 ML VIAL IV PUSH ONE (19:12)
[2019-01-12 19:56] LABS: CKMB ng/mL 2.7 ng/mL (0.6-6.3)
[2019-01-12 20:12] VITALS: BP 137/92
== END 2019-01-12 20:11 | disposition home or self-care (01) ==
LOC: ED 15:36
DX: R07.89 Other chest pain (principal); F17.210 Nicotine dependence, cigarettes, uncomplicated
CPT/HCPCS: 36415; 71045; 80053; 82550; 82553; 83735; 83880; 84443; 84484; 85025; 85610; 93005; 96374; 99283; J1885